=== PATIENT | female | born 1975 | race Hispanic/Latino ===

== ENCOUNTER 2016-06-28 13:25 | Emergency (ER) | payer MEDICAID ==
[~2016-06-28] VITALS: Ht 144.8 cm; Wt 61.2 kg
[~2016-06-28 13:25] MED LIST: Ascorbic Acid PO; DOCU-41 PO; FERR-74 PO; IBUP-1827 PO
[2016-06-28 13:27] VITALS: BP 116/79; PULSE 71; RESP 15; O2SAT 100
--- NOTE | 2016-06-28 15:06 | ED.REPORT ---
HPI- Female Date of Service Jun 28, 2016 ED Provider: Woo Mcneill MD Patient is a 40 year old female who started control (Depo shots) 3 weeks ago who presents to the ED complaining of vaginal bleeding. She began developing cold like symptoms 8 days ago which progressed with intermittent headaches and vaginal bleeding that waxes and wanes. She reports that she has been going through 3-4 thick pads a day which is abnormal for her. Associated symptoms include chills and lower abdominal pain. She denies fever, dysuria, or any other symptoms. She has been on brith control before and has not had bleeding like this. Her last normal period was sometime in May. She has not taken any medication for her pain. She does not take any daily medications besides Vitamin C. Patient's [place]ic speaking daughter served as an school age lead teacher. Nursing Notes Stated Complaint: VAGINAL BLEED Chief Complaint: Female Abdominal Pain Nursing Notes Reviewed: Yes ([employer], meds not reconciled) Allergies: Coded Allergies: No Known Allergies (Verified , 06/28/16) Uncoded Allergies: No Known Allergies (Allergy, Severe, 11/04/04) NKA (Allergy, Unknown, 01/25/04) NKDA (Allergy, Unknown, 01/25/04) Scheduled ([Ascorbic Acid]) 500 MG TABLET 500 MG PO BIDWM Docusate Sodium (Colace) 100 Mg Capsule 100 MG PO BID Ferrous Sulfate (Feosol) 325 Mg Tablet 325 MG PO BIDWM Scheduled PRN Ibuprofen (Ibuprofen) 600 Mg Tablet 600 MG PO Q6H PRN PRN For Mild Pain Ibuprofen (Ibuprofen) 800 Mg Tablet 800 MG PO TID PRN PRN For Pain General Time Seen by MD: 15:04 Chief Complaint Vaginal bleeding... Hx Obtained From: Patient, Daughter Arrived By: Walk-in Sudden in Onset?: Yes Onset Occurred: 1 week ago Symptom Duration: Since onset Similar Sx Previous: No Past Medical History Past Medical History G 15, P 12 Anemia Past Surgical History Pt denies Family History Non-contibutory Smoking History Never Smoker Social History Patient speaks [place], or no translation services available, family served as translation given the absence of other options. There is no written word for this language. Alcohol Use: Denies alcohol use Drug Use: Denies drug use Ambulatory Status Independent Review of Systems Constitutional: Reports: Chills, Denies: Fever GI: Reports: Abdominal pain Female: Reports: Vaginal bleeding - abnl, Denies: Dysuria Neurologic: Reports: Headache Complete sys rev & neg: except as marked. Physical Exam Initial Vital Signs Vital Signs (First) Date Time Temp Pulse Resp B/P Pulse Ox O2 Delivery O2 Flow Rate FiO2 06/28/16 13:27 37.2 71 15 116/79 100 Room Air Initial VS: Reviewed, Vital signs normal General/Constitutional: Well-developed, Well-nourished Head / Eyes: Atraumatic, Normocephalic Neck: Full range of motion Respiratory: No respiratory distress Abdomen / GI: Soft, Non-tender Skin: Warm, Dry Neurologic: Alert, Oriented, Nonfocal Psychiatric: Mood/affect normal, Behavior normal, Normal thought content Female Genitourinary: Exam deferred Interpretation & Diagnostics Lab Results Interpretation Result Diagram: 06/28/16 1611 06/28/16 1611 Test 06/28/16 16:10 06/28/16 16:11 Hold Sr Top Tube Received (Received) White Blood Count 9.1th/mm3 (3.8-10.1) Red Blood Count 4.63mil/mm3 (3.90-5.20) Hemoglobin 12.4g/dL (12.0-15.6) Hematocrit 37.8% (35.0-46.0) Mean Corpuscular Volume 81.6fL (81-100) Mean Corpuscular Hemoglobin 26.8pg (27.0-35.0) Mean Corpuscular Hemoglobin Concent 32.8% (32.0-37.0) Red Cell Distribution Width 13.8% (12.3-15.4) Platelet Count 247bil/L (150-400) Neutrophils (%) (Auto) 49.7% (40-74) Lymphocytes (%) (Auto) 43.7% (14-46) Monocytes (%) (Auto) 4.8% (4-12) Eosinophils (%) (Auto) 1.4% (0-5) Basophils (%) (Auto) 0.3% (0-3) Sodium Level 139mEq/L (134-144) Potassium Level 3.8mEq/L (3.5-5.2) Chloride Level 103mEq/L (97-108) Carbon Dioxide Level 22mmol/L (18-29) Blood Urea Nitrogen 9mg/dL (6-20) Creatinine 0.47mg/dL (0.57-1.00) Estimat Glomerular Filtration Rate 211mL/min (>59) Glucose Level 86mg/dL (60-99) Calcium Level 8.9mg/dL (8.5-10.1) Total Bilirubin 0.2mg/dL (0.0-1.2) Aspartate Amino Transf (AST/SGOT) 27U/L (0-50) Alanine Aminotransferase (ALT/SGPT) 32U/L (0-32) Alkaline Phosphatase 173U/L (25-150) Total Protein 7.5g/dL (6.4-8.4) Albumin 4.1g/dL (3.4-5.0) Lab Results Interpretation: CBC normal - not anemic CMP normal negative Re-Eval/Medical Decision Med Decision/Clinical Course His is a 40-year-old female recently started Depo-Provera IM about 3 weeks ago then started developing protracted and moderately heavy bleeding going through 4 pads a day for the past several days. She also some cramping. So she became concerned. Her last normal period was at the end of April beginning of May. She has had problems with anemia in the past, but never required transfusion. She has no other complaints. She is not having any abdominal discomfort at present. She also reported some URI symptoms at onset about a week ago with a little bit of a headache, has had no fever or other symptoms. Patient clinically appears well and is no distress. Her abdomen is entirely soft nontender. Her vitals are normal. Blood work demonstrates no anemia. Urine is negative. Not finding an indication for additional testing. This typically would not be unusual in this setting after initiation of Depo-Provera was explained, I have recommended initiating ibuprofen. Routine discharge precautions and, return precautions were personally reviewed. 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 Source of Hx: Old records Re-Evaluation/Progress : Time of Eval: 17:18 Patient Status: Condition improved Re-Evaluation/Progress Note: Discussed lab results and plan for discharge with followup. Patient understands and agrees with plan. All questions addressed at this time. Differential Diagnosis: Positive: Vaginal bleeding, Negative: , complete, , incomplete, Jules-Chris contraction , Discomfort of , Ectopic preg, ruptured, Ectopic , hemorrhage, Pyelonephritis, acute Counseled Regarding: Diagnosis, Lab results, Need for follow-up, When/why to return to ED Discharge & Departure Impression: Primary Impression: Vaginal bleeding Disposition: Home Discharge Condition All VS Reviewed: Yes Condition: Improved Additional Instructions: 1. This type of bleeding is not unusual after starting the injectable control medication. The bleeding is expected to improve, likely in several more days. 2. Your blood counts were normal. 3. Take ibuprofen 400-800mg three times a day - this should help with bleeding and with pain 4. Symptoms are expected to be improving with time over the next week 5. If not improving, follow up with Dr. De Leon. 6. Return if new or worsening symptoms Referrals: Baljinder De Leon MD (PCP) Scribe Attestation Portions of this note were transcribed by Rachele Laura. I, Dr. Mcneill personally performed the history, physical exam and medical decision-making; I reviewed and confirmed the accuracy of the information in the transcribed note. Signed by: Rachele Laura 06/28/2016, 2304 copies to: Baljinder De Leon MD, Matthew F MD Jun 28, 2016 15:06 RACHELE LAURA Jun 28, 2016 15:51
[2016-06-28 16:25] LABS: BASOPHILS % (AUTO) 0.3 % (0-3); EOSINOPHILS % (AUTO) 1.4 % (0-5); MONOCYTES % (AUTO) 4.8 % (4-12); Mean Corpuscular Hemoglobin 26.8 pg (27.0-35.0); Mean Corpuscular Volume 81.6 fL (81-100); NEUTROPHILS % (AUTO) 49.7 % (40-74); Platelet Count 247 bil/L (150-400)
[2016-06-28] MEDS ORDERED: IBUP800T28 PO (17:14)
[2016-06-28 18:07] VITALS: BP 127/90; PULSE 90
== END 2016-06-28 17:50 | disposition home or self-care (01) ==
LOC: SED 13:25
DX: N93.9 Abnormal uterine and vaginal bleeding, unspecified (principal); R68.83 Chills (without fever); R10.30 Lower abdominal pain, unspecified; Z86.2 Personal history of diseases of the blood and blood-forming organs and certain disorders involving the immune mechanism; Z79.3 Long term (current) use of hormonal contraceptives